=== PATIENT | male | born 1970 | race Caucasian/White ===

== ENCOUNTER 2017-01-20 13:44 | Emergency (ER) | payer OTHER ==
[~2017-01-20] VITALS: Ht 177.8 cm; Wt 115.7 kg
--- NOTE | ~2017-01-20 | CR63 ---
[facility] A Service of [facility] & [facility] RADIOLOGY TEXT RESULTS PATIENT: SHANE MO LOCATION: SED : 66 UNIT #: [id number] AGE: [address]: JUANA LE SEX: M ORDER DR: [id number] [address] [address] [id number] E MR#: [id number] #: [id number] NAME: SHANE MO : 1970 SEX: M STUDY DATE/TIME: 01/20/2017 15:10 UNIT: SED ROOM: STUDY DESCRIPTION: CR Chest 2 View Attending Physician: Juana Le A.P.R.N. Ordering Physician: Juana Le A.P.R.N. MEDICAL IMAGING REPORT This report is preliminary unless electronic signature is present. EXAM Two-view chest HISTORY Cough, congestion x3 weeks. FINDINGS Two views of the chest demonstrates no infiltrates or effusions. Heart, mediastinum and great vessels unremarkable. Deformity of the right clavicle suggest old clavicular fracture. Correlate clinically. Impression 1. No acute cardiopulmonary disease. 2. Deformity of the middle third of the right clavicle suggesting old fracture. Correlate clinically. Dictated by... Se Loza M.D. THIS IS AN ELECTRONICALLY VERIFIED REPORT Se Loza M.D. at 01/21/2017 10:03 AM LESTER/mc TD: 01/21/2017 09:39 JOB #: [id number] MEDICAL IMAGING REPORT Page 1 of 1
[2017-01-20] MEDS ORDERED: AMOXICILLIN500 M1 PO (13:53)
== END 2017-01-20 16:38 | disposition home or self-care (01) ==
LOC: SED 13:44
DX: J20.9 Acute bronchitis, unspecified (principal)
CPT/HCPCS: 71020; 94640; 99283